=== PATIENT | female | born 1990 | race Caucasian/White ===

== ENCOUNTER 2019-01-25 16:44 | Emergency (ER) | payer OTHER ==
[~2019-01-25] VITALS: Ht 162.6 cm; Wt 69.5 kg
[2019-01-25 18:31] VITALS: BP 131/72
--- NOTE | 2019-01-25 18:31 | NUR ---
AMBULATES BACK TO THE LOBBY
--- NOTE | 2019-01-25 19:05 | NUR ---
PT PRESENTS TO ED WITH RIGHT FOREARM PAIN, EDEMA, REDNESS, AND 2CM ABCESS. PT STATES UNKNOWN CAUSE. NO DRAINAGE. 10 PAIN. VSS. AFEBRILE. CMS INTACT BILAT UPPER EXTREMITIES. POSITIONED IN BED FOR COMFORT. ER MD AWARE. CONTINUE TO MONITOR.
[2019-01-25 20:12] VITALS: BP 129/68
--- NOTE | 2019-01-25 20:12 | NUR ---
Patient discharged with v/s stable. Written and verbal after care instructions given and explained. Patient alert, oriented and verbalized understanding of instructions. Ambulatory with steady gait. All questions addressed prior to discharge. ID band removed. Patient advised to follow up with PMD. Rx of Motrin, Diflucan, Keflex, Bactrim given. Patient educated on indication of medication including possible reaction and side effects. Opportunity to ask questions provided and answered.
== END 2019-01-25 20:12 | disposition home or self-care (01) ==
LOC: MED 16:44
DX: L02.413 Cutaneous abscess of right upper limb (principal)
CPT/HCPCS: 99283